=== PATIENT | male | born 1995 | race Native Hawaiian/Other Pacific Islander ===

== ENCOUNTER 2017-06-07 20:14 | Emergency (ER) | payer BC ==
[2017-06-07 20:14] VITALS: BP 141/60; PULSE 104; RESP 16; TEMP 99.4; O2SAT 98
[2017-06-08] MEDS ORDERED: BENZONATATE 100 MG CAP PO ONE (00:15)
[2017-06-08 00:28] VITALS: BP 125/74; PULSE 83; RESP 18; O2SAT 98
[2017-06-08] MEDS ORDERED: BENZ100 PO (00:45)
[2017-06-08] MEDS ORDERED: IBUP1TAB7 PO (00:45)
--- NOTE | 2017-06-08 00:46 | PD ---
HPI Chief Complaint: Abdominal Pain Time Seen by Provider: 00:03 Travel History International Travel<30 days: No Contact w/Intl Traveler<30days: No Traveled to known affect area: No History of Present Illness HPI Patient is a 22-year-old male presenting to the emergency department for evaluation of cough, sneezing, nasal congestion. Patient states it started Monday, he reports feeling better now than he did then. He reports an episode of posttussive emesis this afternoon. He denies any other nausea, vomiting. He stated that he had an episode of epigastric abdominal pain after he ate [employer] today. Patient states that he feels tired and he is wondering why he is not better yet. Patient reports taking a cold tablet morning. He also took NyQuil last night. Symptom onset was gradual, patient's symptoms are alleviated with [id number] medications. They are somewhat exacerbated when medications wear off. Patient denies any chest pain, shortness of breath, fevers, headache, chest pain, abdominal pain currently. [facility] Past Medical History Medical History: Denies Significant Hx Past Surgical History Surgical History: No Previous Surgery Social History Alcohol Use: No Tobacco Use: No Substance Use: No Allergies-Medications (Allergen,Severity, Reaction): Coded Allergies: No Known Allergies (Unverified , 06/08/17) Reported Meds & Prescriptions Reported Meds & Active Scripts Active No Active Prescriptions or Reported Medications Review of Systems Except as stated in HPI: all other systems reviewed are Neg HENT: Positive: Rhinitis, Congestion Cardiovascular: No: Chest Pain or Discomfort Respiratory: Positive: Cough, Other (Posttussive emesis 1), No: Shortness of Breath Gastrointestinal: No: Nausea, Vomiting, Abdominal Pain Genitourinary: No: Dysuria Musculoskeletal: Positive: Myalgias Physical Exam Narrative GENERAL: Well-developed, well-nourished, well-appearing male. Presenting in no acute distress. SKIN: Warm and dry. HEAD: Atraumatic. Normocephalic. EYES: Pupils equal and round. No scleral icterus. No injection or drainage. ENT: No nasal bleeding or discharge. Mucous membranes pink and moist. NECK: Trachea midline. No JVD. CARDIOVASCULAR: Regular rate and rhythm. RESPIRATORY: No accessory muscle use. Clear to auscultation. Breath sounds equal bilaterally. GASTROINTESTINAL: Abdomen soft, non-tender, nondistended. Hepatic and splenic margins not palpable. MUSCULOSKELETAL: Extremities without clubbing, cyanosis, or edema. No obvious deformities. NEUROLOGICAL: Awake and alert. No obvious cranial nerve deficits. Motor grossly within normal limits. Five out of 5 muscle strength in the arms and legs. Normal speech. PSYCHIATRIC: Appropriate mood and affect; insight and judgment normal. Data Data Last Documented VS Vital Signs Date Time Temp Pulse Resp B/P (MAP) Pulse Ox O2 Delivery O2 Flow Rate FiO2 06/08/17 00:28 83 18 125/74 (91) 98 Room Air 06/07/17 20:14 99.4 Orders Orders Complete Blood Count With Diff (06/07/17 20:31) Comprehensive Metabolic Panel (06/07/17 20:31) Lipase (06/07/17 20:31) Influenzae A/B Antigen (06/07/17 20:31) Benzonatate (Tessalon) (06/08/17 00:15) MDM Medical Decision Making Medical Screen Exam Complete: Yes Emergency Medical Condition: Yes Interpretation(s) Vital Signs Date Time Temp Pulse Resp B/P (MAP) Pulse Ox O2 Delivery O2 Flow Rate FiO2 06/08/17 00:28 83 18 125/74 (91) 98 Room Air 06/07/17 20:14 99.4 104 16 141/60 (87) 98 Differential Diagnosis Influenza versus viral syndrome versus bronchitis versus Narrative Course Patient is a 22-year-old male who presented to the emergency department for evaluation of cold symptoms that started 3 days ago. Patient is well appearing , his vital signs are stable. Influenza is negative. Patient had labs ordered while in triage, these were canceled, symptoms appear consistent with a viral URI. Patient is tolerating food and fluids. The one episode of vomiting that he experienced was secondary to a coughing spell. Patient was encouraged to continue symptom management. He was advised to follow-up with his primary doctor or return to emergency department for any new or worsening symptoms. Patient verbalized understanding of these instructions. Patient stable for discharge. Diagnosis Primary Impression: Viral URI with cough Referrals: Primary Care Physician Patient Instructions: General Instructions, Upper Respiratory Infection (ED) Additional Instructions: Continue symptom management Maintain adequate fluid intake Follow-up with your primary doctor Return to emergency department for any new or worsening symptoms Med/Other Pt SpecificInfo: Prescription(s) given Scripts Ibuprofen (Ibuprofen) 800 Mg Tab 800 MG PO Q6HR Y for PAIN, #40 TAB 0 Refills Prov: Nette Centeno 06/08/17 Benzonatate (Tessalon Perles) 100 Mg Cap 100 MG PO TID Y for COUGH for 5 Days, CAP 0 Refills Prov: Nette Centeno 06/08/17 Disposition: 01 DISCHARGE HOME Condition: Stable Nette Centeno Jun 08, 2017 00:46
== END 2017-06-08 01:19 | disposition home or self-care (01) ==
LOC: NEPD 20:14
DX: J06.9 Acute upper respiratory infection, unspecified (principal)
CPT/HCPCS: 87804; 99283